=== PATIENT | female | born 1950 | race Caucasian/White ===

== ENCOUNTER 2023-12-02 11:17 | Outpatient (CLI) | payer MEDICARE, OTHER, SELFPAY ==
--- NOTE | 2023-12-02 11:32 | USCV_ITS ---
Celia Ortiz Age: 73 Gender: F : 1950 Exam Date: 12/02/2023 11:40 Ordering Phys: Kayla White Technologist: CT [place] [facility] [place] Indication: cp BP: 140 / 92 HR: 61 Rhythm: Sinus Technical Quality: Adequate MEASUREMENTS (Male / Female) Normal Values 2D ECHO LVOT Diameter 2.0 cm LV Ejection Fraction MOD 2C 54.9 % LV Ejection Fraction 2C AL 60.6 % LA Diameter 4.0 cm RA Systolic Volume 4C AL 71.5 ml RA Systolic Volume 4C MOD 70.9 ml Aorta at Sinotubular Diameter 2.0 cm IVC Diameter 1.6 cm M-MODE LA Ao Ratio MM 1.6 AV Cusp Separation MM 2.0 cm DOPPLER AV Peak Velocity 162.0 cm/s LVOT Peak Velocity 127.0 cm/s AV Area Cont Eq vti 2.2 cm squared AV Area Cont Eq pk 2.5 cm squared MV Peak Velocity 114.0 cm/s MV Area PHT 6.0 cm squared Mitral E to A Ratio 0.8 TR Peak Velocity 120.0 cm/s TR Peak Gradient 5.8 mmHg TV Peak E Velocity 95.0 cm/s Right Atrial Pressure 3.0 mmHg Pulmonary Artery Systolic Pressu 8.8 mmHg PV Peak Velocity 117.0 cm/s FINDINGS Left Ventricle Normal left ventricular size, systolic function and wall thickness, with no regional wall motion abnormalities. Left ventricular ejection fraction is estimated at 65 %. Normal diastolic function. Right Ventricle Normal right ventricular systolic pressure. Normal right ventricular size and systolic function. Right Atrium The right atrium is normal in size. Left Atrium The left atrium is normal in size. Mitral Valve Structurally normal mitral valve. Mild mitral valve regurgitation. Aortic Valve Structurally normal aortic valve without significant sclerosis or stenosis. There is no aortic regurgitation. Tricuspid Valve Structurally normal tricuspid valve without significant stenosis or regurgitation. Pulmonary artery systolic pressure is normal. Pulmonic Valve Pulmonic valve not well visualized. Trace pulmonary valve regurgitation. Pericardium Normal pericardium without effusion. Aorta Normal ascending aorta dimension. IVC The inferior vena cava appears normal. CONCLUSIONS Normal left ventricular size, systolic function and wall thickness, with no regional wall motion abnormalities. Left ventricular ejection fraction is estimated at 65 %. Normal diastolic function. Structurally normal mitral valve. Mild mitral valve regurgitation. There are no prior echocardiogram studies to compare. Dr. Dharmesh Gonzalez MD (Electronically Signed) Final Date: 04 December 2023 08:54 S
== END 2023-12-02 11:18 | disposition home or self-care (01) ==
LOC: RAD 11:18
PROVIDERS: Family Provider Family Medicine; Visit Provider Nurse Practitioner Family
DX: R00.1 Bradycardia, unspecified (principal); R94.31 Abnormal electrocardiogram [ECG] [EKG]; R07.9 Chest pain, unspecified; I34.0 Nonrheumatic mitral (valve) insufficiency
CPT/HCPCS: 93306

== ENCOUNTER 2024-01-15 09:24 | Outpatient (CLI) | payer MEDICARE, OTHER, SELFPAY ==
--- NOTE | 2024-01-15 | ECG_ITS ---
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 Interpretive Statements NAME OF STUDY: LEXISCAN SESTAMIBI STRESS TEST INDICATION: Chest Pain PROCEDURE: At the baseline, the EKG revealed sinus bradycardia with some nonspecific T wave changes. The baseline heart was 57 bpm with a blood pressue of 127/76 mm of Hg Lexiscan was infused over a period of 20 seconds. A total of 0.4 milligrams of Lexiscan was infused. The stress phase was continued for a total of 5 minutes. Heart rate at the end of the stress phase was 87 bpm with a blood pressure 130/73 mm of Hg. The EKG at the peak infusion revealed no significant changes. Sestamibi was injected 20 seconds after the Lexiscan infusion. Heart rate at the end of the recovery phase was 85 bpm with a blood pressure of 141/74 mm of Hg. CONCLUSION: 1. No significant EKG changes with the LexiScan infusion 2. No LexiScan induced chest pain or cardiac arrhythmia 3. Normal blood pressure and heart rate response 4. Sestamibi/sestamibi perfusion scan pending; see separate report. Electronically Signed On 01-19-2024 23:51:04 CDT by Pankaj Kaye M.D. [email or web address]
[2024-01-15 09:47] VITALS: BMI 41.5
--- NOTE | 2024-01-15 09:50 | NMCV_ITS ---
NM randy perf SPECT r/s* [id number] Celia Ortiz Age: 73 Gender: F : 1950 Exam Date: 01/15/2024 09:50 Ordering Phys: Fidencio Navas Technologist: ANDIE Willson Exam Location: [facility] Indications: ABNORMAL EKG STRESS TEST Please see separate stress test report in [facility] for full findings IMAGE PROTOCOL Rest/Stress 1 Lexiscan Day Radiopharmaceutical Dose (mCi) Administration Site Administered by Rest: Tc-99m 10.8 IV ANDIE Campa Sestamibi Stress:Tc-99m 32.3 IV ANDIE Campa Sestamibi Rest: 15-Jan-2024 60 Discovery 630 Stress: 15-Jan-2024 30 Discovery 630 0.4mg Lexiscan. Supine position only as patient was unable to lay prone. SPECT RESULTS Technical Quality: Excellent Raw Data Analysis: Normal, Breast attenuation Image Corrections: No attenuation or motion correction applied Summed Stress Score: 4 Summed Rest Score: 4 Summed Difference Score: 0 PERFUSION FINDINGS Small to moderate area of moderately decreased tracer uptake involving the mid inferolateral and apical lateral region. No significant reversibility was noted in this area FUNCTIONAL RESULTS (calculated via Gated SPECT) Stress Image LV EF (%): 72 Stress EDV (mL):100 TID: 1.04 Stress ESV (mL):28 FUNCTIONAL FINDINGS: Segmental wall motion analysis revealing no gross wall motion abnormalities IMPRESSIONS 1. Myocardial perfusion imaging revealing small to moderate area of persistent decreased tracer uptake involving the mid inferolateral and apical lateral region suggesting myocardial scarring versus attenuation artifact. 2. Normal LV ejection fraction of 72%. 3. LV wall motion analysis revealing no gross wall motion abnormalities. 4. Normal LV volume Low probability for coronary ischemia, based on the above findings. No similar previous studies are available for comparison Dr Pankaj Kaye MD [facility] (Electronically Signed) Final Date: 15 January 2024 16:22 S
[2024-01-15] MEDS: regadenoson 0.4 Mg/5 ml Syringe 0.400000000000000022 MG IVP (11:26)
[2024-01-15 11:38] VITALS: BP 141/74; PULSE 85
== END 2024-01-15 09:25 | disposition home or self-care (01) ==
LOC: CDL 09:25
PROVIDERS: PCP Family Medicine; Visit Provider Family Medicine
DX: R07.9 Chest pain, unspecified (principal)
CPT/HCPCS: 36415; 78452; 93017; 96374; A9500; J2785

== ENCOUNTER → 2024-02-18 13:43 | Outpatient (BNVA) | payer MEDICARE, OTHER, SELFPAY | PROVIDERS: PCP Family Medicine; Referring Provider Nurse Practitioner Family; Visit Provider Internal Medicine Cardiovascular Disease | DX: R07.89 Other chest pain (principal); I10 Essential (primary) hypertension; E11.9 Type 2 diabetes mellitus without complications; Z79.4 Long term (current) use of insulin; E78.5 Hyperlipidemia, unspecified; E66.01 Morbid (severe) obesity due to excess calories; Z68.41 Body mass index [BMI] 40.0-44.9, adult; R00.1 Bradycardia, unspecified | CPT/HCPCS: 99204 ==

== ENCOUNTER 2024-08-23 13:14 | Outpatient (RCR) | payer OTHER, MEDICARE, SELFPAY | END 2024-09-21 23:59 | disposition home or self-care (01) | LOC: SPT 13:14 | PROVIDERS: Visit Provider Family Medicine | DX: R42 Dizziness and giddiness (principal) | CPT/HCPCS: 95992; 97161 ==

== ENCOUNTER → 2025-04-25 14:44 | Outpatient (BNVA) | payer OTHER, MEDICARE, SELFPAY | PROVIDERS: Visit Provider Internal Medicine Cardiovascular Disease | DX: R07.9 Chest pain, unspecified (principal) | CPT/HCPCS: 93005 ==